=== PATIENT | female | born 1965 | race Caucasian/White ===

== ENCOUNTER → 2017-04-07 | Day surgery (SDC) | payer BC, MEDICAID ==
[~2017-04-07] MED LIST: Acetaminophen/oxyCODONE 325-5 MG Tab PO PRN; Dexamethasone 4 MG/ML 5 ML MDV ONE; HYDROmorphone 0.5 MG/0.5 ML Syringe IVPUSH PRN; HYDROmorphone 1 MG/ML Syringe ONE; Ketorolac 30 MG/ML SDV ONE; Lactated Ringers 1,000 ML ONE; Lidocaine 1% with EPINEPHrine 1:100,000 20 ML MDV ONE; Lidocaine 1%/Sod Bicarbonate in NS 8.4% 1 ML Syringe IV PRN; Lidocaine 2% Jelly 10 ML Urojet ONE; Midazolam 1 MG/ML 2 ML SDV ONE; Neostigmine Methylsulfate 1 MG/ML 5 ML Syringe ONE; Ondansetron 4 MG/2 ML SDV IVPUSH ONE; Ondansetron 4 MG/2 ML SDV IVPUSH PRN; Ondansetron 4 MG/2 ML SDV ONE; Propofol 200 MG/20 ML SDV ONE; Rocuronium 50 MG/5 ML Vial ONE; Sodium Chloride 0.9% 10 ML Syringe FLUSH PRN; Sodium Chloride 0.9% 50 ML SDV ONE; ceFAZolin 1 GM Vial ONE; fentaNYL 100 MCG/2 ML SDV IVPUSH PRN; fentaNYL 250 MCG/5 ML SDV ONE
[2017-04-07] MEDS: Lactated Ringers 1,000 ML IV SCH ×3 (10:10→16:03)
--- NOTE | 2017-04-07 11:06 | PCM.PREANE ---
Preanesthetic Assessment - Anesthesia/Transfusion/Family Hx Anesthesia History: Prior Anesthesia Without Reaction Family History of Anesthesia Reaction: No Transfusion History: No Prior Transfusion(s) - Review of Systems General: No Symptoms Pulmonary: No Symptoms Cardiovascular: No Symptoms Gastrointestinal: Abdominal Pain (sharp pains on side ) Neurological: No Symptoms - Physical Assessment NPO Status Date: 04/06/17 NPO Status Time: 23:00 Pulse: 84 O2 Sat by Pulse Oximetry: 97 Respiratory Rate: 16 Blood Pressure: 124/70 Temperature: 37.2 C Vital Signs: Last Vital Signs Temp 37.2 C 04/07/17 09:45 Pulse 84 04/07/17 09:45 Resp 16 04/07/17 09:45 BP 124/70 04/07/17 09:45 Pulse Ox 97 04/07/17 09:45 Height: 1.65 m Weight: 84.822 kg ASA Class: 2 Mental Status: Alert & Oriented x3 Airway Class: Mallampati = 1 Dentition: Reports: Normal Dentition Thyro-Mental Finger Breadths: 3 Mouth Opening Finger Breadths: 3 ROM/Head Extension: Full Lungs: Clear to Auscultation, Normal Respiratory Effort Cardiovascular: Regular Rate, Regular Rhythm, No Murmurs - Lab Values: Laboratory Last Values WBC 6.81 K/mm3 (3.98-10.04) 04/05/17 10:35 RBC 4.43 M/mm3 (3.98-5.22) 04/05/17 10:35 Hgb 14.0 gm/L (11.2-15.7) 04/05/17 10:35 Hct 41.3 % (34.1-44.9) 04/05/17 10:35 MCV 93.2 fl (79.4-94.8) 04/05/17 10:35 MCH 31.6 pg (25.6-32.2) 04/05/17 10:35 MCHC 33.9 g/dl (32.2-35.5) 04/05/17 10:35 RDW Std Deviation 43.2 fL (36.4-46.3) 04/05/17 10:35 Plt Count 335 K/mm3 (182-369) 04/05/17 10:35 MPV 10.8 fl (9.4-12.3) 04/05/17 10:35 Neut % (Auto) 56.5 % (34.0-71.1) 04/05/17 10:35 Lymph % (Auto) 29.2 % (19.3-51.7) 04/05/17 10:35 [place] % (Auto) 11.3 % (4.7-12.5) 04/05/17 10:35 Eos % (Auto) 2.6 (0.7-5.8) 04/05/17 10:35 Baso % (Auto) 0.3 % (0.1-1.2) 04/05/17 10:35 Neut # (Auto) 3.84 K/mm3 (1.56-6.13) 04/05/17 10:35 Lymph # (Auto) 1.99 K/mm3 (1.18-3.74) 04/05/17 10:35 Swift # (Auto) 0.77 K/mm3 (0.24-0.36) H 04/05/17 10:35 Eos # (Auto) 0.18 K/mm3 (0.04-0.36) 04/05/17 10:35 Baso # (Auto) 0.02 K/mm3 (0.01-0.08) 04/05/17 10:35 Creatinine 0.7 mg/dL (0.55-1.02) 04/05/17 10:35 Est Cr Clr Drug Dosing TNP 04/05/17 10:35 Estimated GFR (MDRD) > 60 mL/min (>60) 04/05/17 10:35 Urine Color Light yellow (Yellow) 04/05/17 10:35 Urine Appearance Clear (Clear) 04/05/17 10:35 Urine pH 7.0 (5.0-8.0) 04/05/17 10:35 Ur Specific [place] 1.015 (1.005-1.030) 04/05/17 10:35 Urine Protein Negative (Negative) 04/05/17 10:35 Urine Glucose (UA) Negative (Negative) 04/05/17 10:35 Urine Ketones Negative (Negative) 04/05/17 10:35 Urine Occult Blood Negative (Negative) 04/05/17 10:35 Urine Nitrite Negative (Negative) 04/05/17 10:35 Urine Bilirubin Negative (Negative) 04/05/17 10:35 Urine Urobilinogen 0.2 (0.2-1.0) 04/05/17 10:35 Ur Leukocyte Esterase Trace (Negative) H 04/05/17 10:35 Urine HCG, Qual Negative (NEGATIVE) 04/05/17 10:35 Blood Type O POSITIVE 04/05/17 10:35 Gel Antibody Screen Negative 04/05/17 10:35 - Allergies Allergies/Adverse Reactions: Allergies Allergy/AdvReac Type Severity Reaction Status Date / Time No Known Allergies Allergy Verified 04/06/17 16:03 - Blood Blood Available: Yes Product(s) Available: PRBC - Anesthesia Plan Pre-Op Medication Ordered: None - Acknowledgements Anesthesia Type Planned: General Anesthesia Pt an Appropriate Candidate for the Planned Anesthesia: Yes Alternatives and Risks of Anesthesia Discussed w Pt/Guardian: Yes Pt/Guardian Understands and Agrees with Anesthesia Plan: Yes PreAnesthesia Questionnaire Cardiovascular History: Reports: None Respiratory History: Reports: None Gastrointestinal History: Reports: None Genitourinary History: Reports: None NURSING STAFFING COORDINATOR History: Reports: , Spontaneous , Other (See Below) Other OB/BYN History: menorrhagia, abnormal vaginal bleeding, cervical dysplasia Musculoskeletal History: Reports: None Neurological History: Reports: None Psychiatric History: Reports: Anxiety, Depression, Other (See Below) Other Psychiatric History: fatigue Endocrine/Metabolic History: Reports: None Hematologic History: Reports: None Immunologic History: Reports: None Oncologic (Cancer) History: Reports: None Dermatologic History: Reports: None - Past Surgical History Head Surgeries/Procedures: Reports: None HEENT Surgical History: Reports: Tonsillectomy Cardiovascular Surgical History: Reports: None Respiratory Surgical History: Reports: None GI Surgical History: Reports: None Female Surgical History: Reports: D&C, Tubal Ligation Male Surgical History: Reports: None Endocrine Surgical History: Reports: None Neurological Surgical History: Reports: None Musculoskeletal Surgical History: Reports: None Oncologic Surgical History: Reports: None Dermatological Surgical History: Reports: None - SUBSTANCE USE Smoking Status *Q: Former Smoker Recreational Drug Use History: No - HOME MEDS Home Medications: Home Meds Calcium Carbonate [Calcium] 600 mg PO DAILY 04/06/17 [History] Cholecalciferol (Vitamin D3) [Vitamin D3] 1,000 unit PO DAILY 04/06/17 [History] Escitalopram Oxalate [Escitalopram Oxalate] 10 mg PO DAILY 04/06/17 [History] LORazepam [LORazepam] 0.5 - 1 mg PO BEDTIME PRN 04/06/17 [History] Multivitamin [Poly-Vitamin] 1 tab PO DAILY 04/06/17 [History] - CURRENT (IN HOUSE) MEDS Current Meds: Current Medications Lactated Ringer's (Ringers, Lactated) 1,000 mls @ 125 mls/hr IV ASDIRECTED JANA Last Admin: 04/07/17 10:10 Dose: 125 mls/hr Lidocaine/Sodium Bicarbonate (Buffered Lidocaine 1% In Ns 8.4%) 0.25 ml IV ONETIME PRN PRN Reason: Prior to IV Start Last Admin: 04/07/17 10:09 Dose: 0.25 ml Sodium Chloride (Saline Flush) 10 ml FLUSH ASDIRECTED PRN PRN Reason: Keep Vein Open Discontinued Medications Cefazolin Sodium (Ancef) Confirm Administered Dose 2 gm .ROUTE .STK-MED ONE Stop: 04/07/17 09:50 Dexamethasone (Dexamethasone) Confirm Administered Dose 20 mg .ROUTE .STK-MED ONE Stop: 04/07/17 09:50 Fentanyl (Sublimaze) Confirm Administered Dose 250 mcg .ROUTE .STK-MED ONE Stop: 04/07/17 09:51 Ketorolac Tromethamine (Toradol) Confirm Administered Dose 30 mg .ROUTE .STK- MED ONE Stop: 04/07/17 09:50 Midazolam HCl (Versed 1 Mg/Ml) Confirm Administered Dose 2 mg .ROUTE .STK-MED ONE Stop: 04/07/17 09:50 Ondansetron HCl (Zofran) Confirm Administered Dose 4 mg .ROUTE .STK-MED ONE Stop: 04/07/17 09:50 Propofol (Diprivan 20 Ml) Confirm Administered Dose 200 mg .ROUTE .STK-MED ONE Stop: 04/07/17 09:50 Rocuronium Archer (Zemuron) Confirm Administered Dose 50 mg .ROUTE .STK-MED ONE Stop: 04/07/17 09:50
--- NOTE | 2017-04-07 12:49 | PCM.POSTAN ---
POST ANESTHESIA ASSESSMENT - MENTAL STATUS Mental Status: Alert, Oriented - VITAL SIGNS Pulse Rate: 84 SaO2: 99 Resp Rate: 11 Blood Pressure: 135/73 Temperature: 37.2 C - RESPIRATORY Respiratory Status: Respiratory Rate WNL, Airway Patent, O2 Saturation Stable, Supplemental Oxygen - CARDIOVASCULAR CV Status: Pulse Rate WNL, Blood Pressure Stable - GASTROINTESTINAL GI Status: No Symptoms - PAIN Pain Score: 0 - POST OP HYDRATION Hydration Status: Adequate & Stable
--- NOTE | 2017-04-07 13:11 | PCM.OPNOTE ---
- General Post-Op/Procedure Note Date of Surgery/Procedure: 04/07/17 Operative Procedure(s): Total vaginal hysterectomy with bilateral salpingectomy Findings: Uterus tubes and ovaries were relatively normal in appearance. Pre Op Diagnosis: Menorrhagia, irregular uterine bleeding Post-Op Diagnosis: Same Anesthesia Technique: General ET Tube Other Anesthesia Type: Lidocaine quarter percent with epinephrine local20 mL total Primary Surgeon: Noam Hubbard Secondary Surgeon: Otis Bah Anesthesia Provider: Guerda Soto Reason Scrap Metal Collector Was Necessary: Retraction, quality of care, patient safety Role of Scrap Metal Collector: Retraction Pathology: Uterus and bilateral fallopian tubes in one specimen container Fluid Replacement, Intraop: 1,800 Output, Urine Amount: 50 EBL in mLs: 50 Complications: None Condition: Good Free Text/Narrative:: Surgery duration: 32 minutes Procedure: The patient was placed in supine position on the operating table. General endotracheal anesthesia was accomplished. After positioning, and adequate prep and drape, the procedure was then performed. Sterile speculum was placed in the vagina and cervix was visualized. Cervix was injected with lidocaine quarter percent with [id number] mL used. A full circumference incision was made in the cervical epithelium. The bladder was pushed well back off cervix. Posterior cul-de-sac was then entered sharply without problems. Left uterosacral was crossclamped with a Enseal vessel closure system. The left uterosacral and then the right uterosacral ligament pedicles were developed using the Enseal system. The anterior cul-de-sac was then entered without problems and the uterine vasculature, cardinal ligament and broad ligament then developed using Enseal vessel closure system. The uterus was inverted at this time and upper broad ligament fallopian tube pedicles were crossclamped with Bhavesh clamps. Specimen was totally removed. Both these pedicles were then secured with a Bhavesh stitch of #1 Vicryl. Left and right fallopian tube was normal in appearance.. Using Enseal vessel closure system each of the tubes was then removed and sent with the specimen. Ovaries were maintained in place per patient desire. They appeared normal. The patient was found to be hemostatically intact at this time. Vaginal cuff was sutured for hemostatic reasons with a running locked suture of 0 Monocryl from the 2 o'clock position to the 10 o'clock position posteriorly. Vaginal cuff was then closed from right to left side with a running locked suture of 0 Monocryl. Patient was returned to supine position and awakened from general endotracheal anesthesia. She tolerated the procedure was then left the operating room in satisfactory condition.
== END | disposition home or self-care (01) ==
LOC: JD.SDS 09:45
PROVIDERS: ATTEND Obstetrics & Gynecology
DX: N80.0 Endometriosis of uterus (principal); N87.9 Dysplasia of cervix uteri, unspecified; N72 Inflammatory disease of cervix uteri; R73.09 Other abnormal glucose; F41.8 Other specified anxiety disorders; Z79.899 Other long term (current) drug therapy; Z90.89 Acquired absence of other organs; Z98.51 Tubal ligation status; Z87.891 Personal history of nicotine dependence
CPT/HCPCS: 36415; 58262; 81003; 81025; 82565; 85025; 86850; 86900; 86901; 93005; A9270; J0690; J1100; J1170; J1885; J2250; J2405; J2710; J3010; J7120; 00944; J2704